=== PATIENT | female | born 1995 | race Caucasian/White ===

== ENCOUNTER 2022-05-24 10:15 | Emergency (ER) | payer OTHER, SELFPAY ==
[2022-05-24 10:43] VITALS: BP 107/70; PULSE 82; RESP 18; TEMP 36.7; O2SAT 97; BMI 25.7
--- NOTE | 2022-05-24 10:57 | ED.GENADULT ---
HPI - General Adult General Chief complaint: Headache Stated complaint: migraines x3 days Time Seen by Provider: 05/24/22 10:56 Source: patient Mode of arrival: ambulatory Limitations: no limitations History of Present Illness HPI narrative: Patient is a 26 year old assigned female at with a history of migraines presenting to the emergency department today with a persistent migraine. Patient states that her migraines usually resolve after 1 day and this one has been hanging around for 3 days. Patient states that she has tried Excedrin with no success. Patient denies any dizziness, lightheadedness, abdominal pain, vomiting, fever, chills, blurry vision, double vision, loss of vision, chest pain, difficulty breathing, shortness of breath, back pain, night sweats, pain with urination, increased urinary frequency, increased urinary urgency, blood in her urine or stool, syncope or a near syncopal episode, recent trauma or falls, bowel incontinence, bladder incontinence, bowel retention, bladder retention, or any other complaints at this time. Onset (ago): day(s) (3) Location: head Severity: mild Severity scale (1-10): 2 Relieving factors: none Exacerbating factors: none Treatments prior to arrival: none Related Data Allergies Allergy/AdvReac Type Severity Reaction Status Date / Time No Known Allergies Allergy Verified 05/24/22 10:45 [No Known Allergies*] Review of Systems Constitutional: Constitutional: Reports no additional constitutional complaints, Denies chills, Denies fever(s), Reports headache(s) and Denies night sweats Eyes: Eyes: Reports no additional eye complaints, Denies blurry vision, Denies change in vision, Denies diplopia, Denies eye discharge, Denies loss of vision and Denies eye pain ENT: Denies dizziness and Reports headache(s) Cardiovascular: Cardiovascular: Reports no additional cardiovascular complaints, Denies chest pain, Denies lightheadedness, Denies Loss of Consciousness and Denies dyspnea Respiratory: Respiratory: Reports no additional respiratory complaints and Denies dyspnea Gastrointestinal: Gastrointestinal: Reports no additional gastrointestinal complaints, Denies abdominal pain, Denies melena, Denies hematochezia, Denies change in bowel habits, Denies change in stool character and Reports nausea Genitourinary: Genitourinary: Denies hematuria, Denies urinary frequency, Denies dysuria, Denies urinary incontinence, Denies urinary hesitancy and Denies urinary urgency Musculoskeletal: Musculoskeletal: Reports no additional musculoskeletal complaints, Denies numbness and Denies tingling Neurologic: Denies dizziness, Reports headache(s), Denies loss of vision, Denies numbness and Denies tingling Psychiatric: Psychiatric: Reports no additional psychiatric complaints Endocrine: Endocrine: Reports no additional endocrine complaints Hematologic/Lymphatic: Hematologic/Lymphatic: Reports no additional hematologic/lymphatic complaints Allergic/Immunologic: Allergic/Immunologic: Reports no additional allergic/immunologic complaints [facility] Past Medical History Attestation statement: The following information was validated with the patient. Source: old records reviewed and nursing notes reviewed Medical History Gastritis Migraine Social History Social History Alcohol intake: never Smoked in Last 30 Days: No Use of substances other than those prescribed or required for medical reasons: Yes Substance Use Type: Marijuana Advance Directives: No Advance Directives Information Provided: No Patient : No Physical Exam ED Vital Signs: Vital Signs - 24 hr 05/24/22 10:43 05/24/22 12:00 Temperature 98.0 F Pulse Rate 82 67 Respiratory Rate 18 18 Blood Pressure 107/70 95/63 Pulse Oximetry 97 98 Oxygen Delivery Method Room Air BMI result Body Mass Index 25.7 Const General: cooperative, no acute distress, alert and awake Nutritional Appearance: well nourished Orientation/consciousness: patient oriented x3 Limitations: no limitations HENMT Head: Yes normal to inspection and Yes atraumatic Ears: hearing grossly normal bilaterally and external ears normal General nose exam: Normal external nose present, no nasal discharge noted and no epistaxis Face and sinus: Yes normal facial exam, No abrasion and No laceration Mouth: Normal oral and palatal mucosa present, no drooling and no muffled voice Eyes General: appearance normal, both eyes and all related structures Periorbital: periorbital findings normal Eyelids: Yes eyelids normal Conjunctivae: conjunctivae normal Pupils: Equal, round and reactive pupils present EOM: EOMs intact bilaterally Neck Neck: Yes normal visual inspection, Yes full ROM and Yes no lymphadenopathy Chest Chest palpation & inspection: normal inspection of the chest Resp Effort & Inspection: normal respiratory effort and able to speak in complete sentences Auscultation: clear to auscultation bilaterally Cardio Rate: regular rate Rhythm: regular rhythm GI Inspection: Yes normal to inspection Palpation (GI): Soft to palpation, not firm, nontender and no guarding Neuro General: patient oriented x3 and moves all extremities Cranial nerves: Yes Equal, round and reactive pupils present Cognition (Neuro): normal cognition Motor exam (neuro): 5/5 motor strength present throughout Sensory Exam: Normal double simultaneous stimulation for sensation Coordination: [id number] test normal Extrem General: Yes normal to inspection, Yes full ROM and Yes capillary refill normal Psych Appearance: grossly normal Mental Status: mental status grossly normal Affect: normal affect Attitude: cooperative Thought process: Normal thought process present Thought content: Normal thought content present Insight: Good insight present (Psych) Medications Administered Discontinued Medications Generic Name Dose Route Start Last Admin Trade Name Freq PRN Reason Stop Dose Admin Acetaminophen/Butalbital/Caffeine 1 tab 05/24/22 10:59 05/24/22 11:23 Butalb/Acetamin/Caff 50/325/40 Tablet PO 05/24/22 11:00 1 tab ONCE ONE Administration Ketorolac Tromethamine 15 mg 05/24/22 10:59 05/24/22 11:23 Ketorolac Tromethamine 15 Mg/Ml Vial IM 05/24/22 11:00 15 mg ONCE ONE Administration Ondansetron HCl 4 mg 05/24/22 10:59 05/24/22 11:23 Ondansetron Odt 4 Mg Tab.Michaeldis TRANSLINGU 05/24/22 11:00 4 mg ONCE ONE Administration Medical Decision Making Medical Decision Making MDM Narrative: Patient is a 26 year old assigned female at with a history of migraines presenting to the emergency department today with a 3 day long migraine. Patient's physical exam was unremarkable. I explained my physical exam findings to the patient. I answered all questions asked by the patient. Patient received IM Toradol, PO Fiorcet, and ODT Zofran which she stated helped her symptoms significantly. I stressed the importance of the patient taking her medication as prescribed. I stressed the importance of the patient following up with her primary care provider and a neurologist. I stressed the importance of the patient returning to the emergency department immediately if her symptoms were to worsen or if she were to develop any dizziness, shortness of breath, difficulty breathing, chest pain, blurry vision, loss of vision, nausea, vomiting, abdominal pain, fever, chills, back pain, or any other complaints. Patient verbalized agreement and understanding with this treatment plan and discharge. Differential Diagnosis Differential Diagnoses: The differential diagnosis associated with the presentation includes migraine Discharge Plan Discharge Clinical Impression: Migraine Patient Disposition: Home, Self-Care Instructions: Migraine Headache (ED) Additional Instructions: Follow up with your primary care provider. Return to the emergency department immediately if your symptoms worsen or if you develop any dizziness, shortness of breath, difficulty breathing, chest pain, blurry vision, loss of vision, nausea, vomiting, abdominal pain, fever, chills, back pain, or any other complaints. [place] [facility] [place] (Call to establish and follow up with a primary care provider. If you already have a primary care provider, please follow up with them.) [facility] [place]Provider Group] (Call to establish and follow up with a primary care provider. If you already have a primary care provider, please follow up with them.) [facility] [place]Provider Group] (Call to establish and follow up with a primary care provider. If you already have a primary care provider, please follow up with them.) [facility] [place] [facility] [place] (Call to establish and follow up with a neurologist for chronic migraine management.) Stand Alone Forms: Work/School Release Interventions: ED Discharge Assessment Last Done: 05/24/22 12:25 Discharge Date/Time: 05/24/22 12:25 Print Language: Senegalese
[2022-05-24] MEDS: Ondansetron ODT 4 MG TAB.RAPDIS TRANSLINGU (11:23)
[2022-05-24] MEDS: Butalb/Acetamin/Caff 50/325/40 TABLET 1 TAB PO (11:23)
[2022-05-24] MEDS: Ketorolac Tromethamine 15 MG/ML VIAL IM (11:23)
--- NOTE | 2022-05-24 11:29 | PC.NURSE ---
patient a&ox3, c/o mild nausea and 3 day migraine- otc medications which she usually takes arent working, pt states frustration over migraines and providers not taking her seriously to figure out what the causes are, this nurse suggested documenting a food journal to see if any foods are triggers for them. pt states she is photophobic also has floaters in her vision, neuros otherwise intact, pt medicated per order, call das within reach, will continue to monitor
[2022-05-24 12:00] VITALS: BP 95/63; PULSE 67; RESP 18; O2SAT 98
== END 2022-05-24 12:25 | disposition home or self-care (01) ==
PROVIDERS: Emergency Provider Emergency Medicine
DX: G43.909 Migraine, unspecified, not intractable, without status migrainosus (principal)
CPT/HCPCS: 96372; 99284; J1885

== ENCOUNTER 2022-07-21 15:27 | Emergency (ER) | payer OTHER, SELFPAY ==
--- NOTE | ~2022-07-21 | XR_ITS ---
EXAMINATION: XR CHEST CLINICAL INFORMATION: Chest pain. COMPARISON: None available. TECHNIQUE: 2 views of the chest were obtained. FINDINGS: No significant abnormality is noted involving the heart, lungs, mediastinum, bony thorax or soft tissues. XR/XR chest 2V IMPRESSION: No acute cardiopulmonary process.
--- NOTE | 2022-07-21 15:32 | ED_ITS ---
HPI - Chest Pain General Chief Complaint: Chest Pain Stated Complaint: chest pain numbness in arm Related Data Allergies Allergy/AdvReac Type Severity Reaction Status Date / Time No Known Allergies Allergy Verified 05/24/22 10:45 [No Known Allergies*] [facility] Past Medical History Medical History Gastritis Migraine Social History Social History Alcohol intake: never Substance Use Type: Marijuana Physical Exam Vital Signs: Vital Signs: Last Vital Signs Temp 98.7 F 07/21/22 15:34 Pulse 74 07/21/22 15:34 Resp 18 07/21/22 15:34 BP 111/70 07/21/22 15:34 Pulse Ox 96 07/21/22 15:34 O2 Del Method Room Air 07/21/22 15:34 BMI result Body Mass Index 24.6 Course Course Course Narrative: RME - 26 y/o female with history of gastritis presents to the ER for evaluation of intermittent non- radiating chest pains for the last 2-3 days along with new onset left arm numbness that started today. Pain in the chest currently 5/10 in the middle of the chest. VSS in triage. Plan: EKG, labs, CXR Reevaluation(s) Reevaluation #1: patient eloped prior to full evaluation and treatment. Medical Decision Making Lab Data 07/21/22 15:51 07/21/22 15:50 Labs: Lab Results 07/21/22 07/21/22 07/21/22 Range/Units 15:50 15:50 15:51 WBC 8.7 (4.8-10.8) X10*3/uL RBC 4.49 (4.20-5.50) X10*6/uL Hgb 13.1 (12.0-16.0) g/dl Hct 37.4 (37.0-47.0) % MCV 83.3 (80.0-98.0) fL MCH 29.2 (27.0-33.0) pg MCHC 35.0 (31.0-35.0) g/dl RDW 11.9 (11.0-16.0) % Plt Count 209 (160-400) X10*3/uL MPV 10.5 (9.4-12.3) fL Immature Gran % (Auto) 0.2 (0.0-0.4) % Neut % (Auto) 74.5 H (45-73) % Lymph % (Auto) 18.3 L (20-40) % Nuckolls % (Auto) 5.8 (2-11) % Eos % (Auto) 0.9 (0-4) % Baso % (Auto) 0.3 (0-2) % Lymph # (Auto) 1.6 (1.2-4.9) X10*3/uL Nuckolls # (Auto) 0.5 (0.1-1.2) X10*3/uL Eos # (Auto) 0.1 (0.0-0.4) X10*3/uL Baso # (Auto) 0.0 (0.0-0.2) X10*3/uL Abs Immat Gran (auto) 0.02 (0.00-0.03) X10*3/uL Absolute Neuts (auto) 6.5 (2.0-8.3) x10*3/uL Absolute Nucleated RBC 0.000 (0.0-0.012) X10*3/uL Nucleated RBC % (auto) 0.0 (0.0-0.2) /100WBC Sodium 144 (135-145) mmol/L Potassium 3.7 (3.3-5.1) mmol/L Chloride 111 H (96-108) mmol/L Carbon Dioxide 24 (22-29) mmol/L Anion Gap 13 (12-20) BUN 9 (9-16) mg/dL Creatinine 0.73 (0.5-1.4) mg/dL Estim Creat Clear Calc 106.0 Estimated GFR > 60 Random Glucose 95 (60-115) mg/dL Calcium 9.7 (8.4-10.2) mg/dL Magnesium 2.1 (1.6-2.6) mg/dL Total Bilirubin 0.6 (0.0-1.0) mg/dL Direct Bilirubin 0.1 (0.0-0.5) mg/dL AST 14 (5-31) U/L ALT 11 (0-31) U/L Alkaline Phosphatase 60 (39-117) U/L Troponin I High Sens < 2.7 (<3.5-17.0) ng/L Total Protein 7.5 (6.5-8.0) g/dL Albumin 4.6 (3.5-5.0) g/dL Discharge Plan Discharge Clinical Impression: Chest pain Patient Disposition: Elopement
--- NOTE | 2022-07-21 15:32 | ECG_ITS ---
Test Reason : chest pain Blood Pressure : / mmHG Vent. Rate : 073 BPM Atrial Rate : 073 BPM P-R Int : 134 ms QRS Dur : 088 ms QT Int : 394 ms P-R-T Axes : 058 061 026 degrees QTc Int : 434 ms Normal sinus rhythm with sinus arrhythmia Normal ECG No previous ECGs available Referred By: Florence Hanson Electronically Signed By:Aravind Collazo
[2022-07-21 15:34] VITALS: BP 111/70; PULSE 74; RESP 18; TEMP 37.1; O2SAT 96; BMI 24.6
[2022-07-21 15:55] LABS: MANUAL DIFF FLAG NO
[2022-07-21 15:57] LABS: Basophils Percent Auto 0.3 % (0-2); Eosinophils Absolute Auto 0.1 X10*3/uL (0.0-0.4); Eosinophils Percent Auto 0.9 % (0-4); Hematocrit 37.4 % (37.0-47.0); Hemoglobin 13.1 g/dl (12.0-16.0); Imm Gran Abs Auto 0.02 X10*3/uL (0.00-0.03); Imm Gran Pct Auto 0.2 % (0.0-0.4); Lymphocytes Absolute Auto 1.6 X10*3/uL (1.2-4.9); Lymphocytes Percent Auto 18.3 % (20-40); Mean Corpuscular Hemoglobin 29.2 pg (27.0-33.0); Mean Corpuscular Volume 83.3 fL (80.0-98.0); Mean Platelet Volume 10.5 fL (9.4-12.3); Monocytes Absolute Auto 0.5 X10*3/uL (0.1-1.2); Monocytes Percent Auto 5.8 % (2-11); Neutrophils Absolute Auto 6.5 x10*3/uL (2.0-8.3); Neutrophils Percent Auto 74.5 % (45-73); Platelet Count 209 X10*3/uL (160-400); Red Blood Count 4.49 X10*6/uL (4.20-5.50); Red Cell Distribution Width 11.9 % (11.0-16.0); White Blood Count 8.7 X10*3/uL (4.8-10.8)
[2022-07-21 16:14] LABS: Alanine Aminotransferase 11 U/L (0-31); Albumin Level 4.6 g/dL (3.5-5.0); Alkaline Phosphatase 60 U/L (39-117); Anion Gap 13 (12-20); Aspartate Amino Transferase 14 U/L (5-31); Bilirubin Direct 0.1 mg/dL (0.0-0.5); Bilirubin Total 0.6 mg/dL (0.0-1.0); Blood Urea Nitrogen 9 mg/dL (9-16); Calcium 9.7 mg/dL (8.4-10.2); Carbon Dioxide 24 mmol/L (22-29); Chloride 111 mmol/L (96-108); Estimated Glomerular Filt Rate > 60; Glucose Random 95 mg/dL (60-115); Magnesium 2.1 mg/dL (1.6-2.6); Potassium 3.7 mmol/L (3.3-5.1); Sodium 144 mmol/L (135-145); Total Protein 7.5 g/dL (6.5-8.0)
[2022-07-21 16:24] LABS: Troponin-I High Sensitivity < 2.7 ng/L (<3.5-17.0)
== END 2022-07-21 22:10 | disposition left against medical advice (07) ==
LOC: HO.ED 20:57
PROVIDERS: Physician Assistant; Emergency Provider Emergency Medicine
DX: R07.9 Chest pain, unspecified (principal); F12.90 Cannabis use, unspecified, uncomplicated
CPT/HCPCS: 36415; 71046; 80048; 80076; 83735; 84484; 85025; 93005; 99283

== ENCOUNTER 2022-11-19 02:59 | Emergency (ER) | payer OTHER, SELFPAY ==
[2022-11-19 03:59] VITALS: BP 108/56; PULSE 96; RESP 16; TEMP 36.6; O2SAT 98; BMI 25.0
--- NOTE | 2022-11-19 07:05 | ED.GENADULT ---
HPI - General Adult General Chief complaint: Wound/Laceration Stated complaint: head lac, hit head on mirror Time Seen by Provider: 11/19/22 06:44 Source: patient Mode of arrival: ambulatory Limitations: no limitations History of Present Illness HPI narrative: 27 y o female presenting for evaluation of laceration to forehead that occurred earlier this morning. Patient reports that she woke up in the middle of the night to use the bathroom, on her way into the bathroom she reports it was dark and she tripped over something, falling forward into a mirror. Reports +HS with immediate bleeding to a laceration on the forehead. Negative LOC, not on thinners. Pt reports a significant amount of blood loss at home, but now states bleeding is controlled. Endorsing 7/10 pain. Endorsing +headache (diffuse w/o vision changes) and also reporting some intermittent dizziness. Denies visual or hearing changes, numbness or tingling. Also denying chest pain, shortness of breath, abdominal pain, nausea, vomiting, or diarrhea. Last tetanus unknown, patient states likely more than 10 years ago. Related Data Allergies Allergy/AdvReac Type Severity Reaction Status Date / Time No Known Allergies Allergy Verified 05/24/22 10:45 [No Known Allergies*] Review of Systems Review of Systems: Constitutional : No Fever, No Chills, Cardiovascular : No Chest Pain, No SOB Respiratory : No Dyspnea Gastrointestinal : No abdominal pain Musculoskeletal : No Joint Swelling Skin : No rash, positive skin laceration Neuro : No Weakness, No Numbness, + Headache Psych : No SI/HI Yes all other systems are reviewed and are negative PMFSH Past Medical History Attestation statement: The following information was validated with the patient. Source: old records reviewed and nursing notes reviewed Medical History Gastritis Migraine Social History Social History Alcohol intake: never Substance Use Type: Marijuana Advance Directives: No Advance Directives Information Provided: No Patient : No Physical Exam ED Vital Signs: Vital Signs - 24 hr 11/19/22 03:59 11/19/22 07:23 Temperature 97.9 F Pulse Rate 96 91 Respiratory Rate 16 12 Blood Pressure 108/56 L 110/71 Pulse Oximetry 98 98 Oxygen Delivery Method Room Air Room Air BMI result Body Mass Index 25.0 VSS Appearance: Alert.? Oriented X3.? No acute distress.? Head: Normocephalic, atraumatic, no step-offs or deformities. Eyes: Pupils equal, round and reactive to light.?EOMs in tact without pain. Visual salazar in tact without deficit. Neck: Normal inspection.? Neck supple.? CVS: Normal heart rate and rhythm.? Pulses normal.? Respiratory: No respiratory distress.? Breath sounds normal.? Abdomen: Soft and nontender.? Skin: Skin warm and dry.? Normal skin color.? Normal skin turgor.?There is a 5cm linear /superficial laceration to the forehead, midline in position with bleeding currently controlled. No purulent drainage, no surrounding erythema or warmth. Extremities: No lower extremity edema.? No calf ttp. 5/5 strength to bilateral upper and lower extremities Neuro: Oriented X 3.? No motor deficit.? No sensory deficit. CN 2-12 intact. No dysdiadochokinesia, normal finger to nose, heel to perez. Negative Romberg. Ambulatory with a steady gait. GCS-15 NIHSS-0 NIH Stroke Scale Time: 07:11 Level of Consciousness: Alert Level of Consciousness Questions: Answers both questions correctly Level of Consciousness Commands: Performs both tasks correctly Best Gaze: Normal Visual: No visual loss Facial Palsy: Normal Motor Arm (Right): No drift Motor Arm (Left): No drift Motor Leg (Right): No drift Motor Leg (Left): No drift Limb Ataxia: Absent Sensory: Normal Best Language: No aphasia Dysarthia: Normal Extinction and Inattention: No abnormality Score: 0 Course Reevaluation(s) Reevaluation #1: Wound irrigated and then closed with dermabond, skin edges approximated and closed with good effect. . No surrounding erythema, warmth, ecchymosis of the area. Patient tolerated the procedure well, Tylenol ordered for headache. CT pending. Prior to placing Dermabond I did have a long conversation with patient of Dermabond versus stitches, pros versus cons, patient decided Dermabond over stitches and understands that there could be better cosmetic effect with sutures. However she would like Dermabond. Time: 07:41 Reevaluation #2: Head CT read is unremarkable. No acute hemorrhage, mass effect or shift. Patient left prior to receiving discharge paperwork and CT results. Time: 09:19 Medications Administered Discontinued Medications Generic Name Dose Route Start Last Admin Trade Name Aicha PRN Reason Stop Dose Admin Acetaminophen 650 mg 11/19/22 07:10 11/19/22 08:05 Acetaminophen 325 Mg Tablet PO 11/19/22 07:11 650 mg ONCE ONE Administration Diphtheria/Tetanus/Acell Pertussis 0.5 ml 11/19/22 07:10 11/19/22 08:03 Diphth,Pertus(Acell),Tet Adult 0.5 Ml Syringe IM 11/19/22 07:11 0.5 ml .ONCE ONE Administration Medical Decision Making Medical Decision Making [facility] Narrative: 07 27 y o female presenting with laceration to forehead s/p mechanical fall into a mirror this morning with +HS, -LOC PE with 5cm laceration to the forehead, midline in position with bleeding currently controlled. No purulent drainage, no surrounding erythema or warmth. No focal neuro deficits. No dysdiadochokinesia, normal to finger to nose, heel to perez. No pain on EOMs. Pupils HUMBERTO b/l. Strength 5/5 throughout. NIHSS 0 GCS 15 Likely simple laceration. No purulent drainage, no surrounding erythema. Bleeding controlled. No concern for cellulitis, necrotizing infection. Likely concussion without loss of consciousness vs tension headache vs migraine. I am not concerned for epidural hematoma vs subdural hemorrhage vs ICH or other brain bleed, but will r/o with imaging. No signs of skull fx. No signs of traumatic injury to neck, chest, abdomen or pelvis. Plan -- imaging, Tdap, lac closure Differential Diagnosis Differential Diagnoses: The differential diagnosis associated with the presentation includes Likely simple laceration. No purulent drainage, no surrounding erythema. Bleeding controlled. No concern for cellulitis, necrotizing infection. Likely concussion without loss of consciousness vs tension headache vs migraine. I am not concerned for epidural hematoma vs subdural hemorrhage vs ICH or other brain bleed, but will r/o with imaging. No signs of skull fx. No signs of traumatic injury to neck, chest, abdomen or pelvis. Admission/Observation Consideration of admission/observation: Escalation of care including admission/observation considered Unlikely Independent Interpretation I performed an independent interpretation of an: CT Scan Radiology Impression Discussion of test interpretation with radiology: I have reviewed the radiologist's reading. External Record Review External record reviewed: Inpatient record, Outpatient record, Prior outpatient labs and Prior outpatient radiology Critical Care Time Critical Care Time Critical Care Time: No Discharge Plan Discharge Clinical Impression: Laceration, Concussion Patient Disposition: Home, Self-Care Instructions: Concussion (ED), Post Concussion Syndrome (ED), Head Laceration (ED) Additional Instructions: Take your medications as prescribed. If you were prescribed antibiotics today, it is important that you take your medication to their entirety, do not skip any doses, do not finish them early. Follow-up with your primary care provider this week. Return to the emergency department with new or worsening symptoms worsening headache, vision changes, dizziness, nausea, vomiting, chest pain, shortness of breath. In case of emergency call 911 You can take ibuprofen every 6 hours, Tylenol every 4 as needed for pain or discomfort. Referrals: Physician,Miguel Angel J [Primary Care Provider] - 3 days Stand Alone Forms: Work/School Release
[2022-11-19 07:23] VITALS: BP 110/71; PULSE 91; RESP 12; O2SAT 98
== END 2022-11-19 09:49 | disposition home or self-care (01) ==
PROVIDERS: Emergency Provider Emergency Medicine
DX: S01.91XA Laceration without foreign body of unspecified part of head, initial encounter (principal); S06.0X0A Concussion without loss of consciousness, initial encounter; S00.01XA Abrasion of scalp, initial encounter; R40.2410 Glasgow coma scale score 13-15, unspecified time; R51.9 Headache, unspecified; Y29.XXXA Contact with blunt object, undetermined intent, initial encounter; Y93.9 Activity, unspecified; Y92.9 Unspecified place or not applicable; Y99.9 Unspecified external cause status; Z23 Encounter for immunization
CPT/HCPCS: 12002; 70450; 90471; 90715; 99284

== ENCOUNTER 2024-02-29 22:29 | Emergency (ER) | payer OTHER, SELFPAY ==
[2024-02-29 22:34] VITALS: BP 111/65; PULSE 95; RESP 16; TEMP 36.8; O2SAT 97; BMI 25.8
--- NOTE | 2024-03-01 00:12 | ED_ITS ---
HPI - General Adult General Chief complaint: Eye Problems Stated complaint: facial lump Time Seen by Provider: 03/01/24 00:11 Source: patient Mode of arrival: ambulatory Limitations: no limitations History of Present Illness ED Provider: HPI narrative: Patient with acne comes here with redness and swelling under the left eye for last 3 days no fever no chills Related Data Previous Rx's ?Medication ?Instructions ?Recorded cephalexin 500 mg capsule 500 mg PO QID 10 days #40 caps 03/01/24 doxycycline hyclate 100 mg tablet 100 mg PO BID #20 tabs 03/01/24 Allergies Allergy/AdvReac Type Severity Reaction Status Date / Time No Known Allergies Allergy Verified 02/29/24 22:36 [No Known Allergies*] Review of Systems 2 Review of Systems: Yes all other systems are reviewed and are negative [facility] Past Medical History Medical History Gastritis Migraine Social History Social History Alcohol intake: never Substance Use Type: Marijuana Advance Directives: No Advance Directives Information Provided: No Do you have a plan to hurt others: No Plan Physical Exam ED Vital Signs: Vital Signs - 24 hr 02/29/24 22:34 Temperature 98.2 F Pulse Rate 95 Respiratory Rate 16 Blood Pressure 111/65 Pulse Oximetry 97 Oxygen Delivery Method Room Air BMI result Body Mass Index 25.8 Appearance: Alert. Oriented X3. No acute distress. ENT: Pharynx normal. Oral Mucosa moist small abscess over left cheek Neck: Normal inspection. Neck supple. CVS: Normal heart rate and rhythm. Pulses normal. Respiratory: No respiratory distress. Equal air entry bilateral, no wheezing/rales/rhonchi Skin: Skin warm and dry. Cellulitic indurated abscess left cheek HENMT Face images: 2 1. Medications Administered Discontinued Medications Generic Name Dose Route Start Last Admin Trade Name Freq PRN Reason Stop Dose Admin Cephalexin HCl 500 mg 03/01/24 00:29 03/01/24 00:49 Cephalexin 500 Mg Capsule PO 03/01/24 00:30 500 mg ONCE ONE Administration Doxycycline Monohydrate 100 mg 03/01/24 00:29 03/01/24 00:49 Doxycycline Monohydrate 100 Mg Capsule PO 03/01/24 00:30 100 mg ONCE ONE Administration Procedures Abscess I/D Site: face Side (if applicable): left Technique: needle aspiration Amount of fluid expressed (mL): 0.5 Sent for culture/gram staining?: No Irrigation: No Packing used?: none Medical Decision Making Medical Decision Making [facility] Narrative: Small abscess under the left eye on the cheek needle aspiration was done pus removed will prescribe doxycycline and cephalexin Discharge Plan Discharge Clinical Impression: Abscess of face Patient Disposition: Home, Self-Care Instructions: Abscess (ED) Additional Instructions: Local care as advised Warm packs Take antibiotic as prescribed Report to the ER/PCP if swelling gets worse Prescriptions: New cephalexin 500 mg capsule 500 mg PO QID 10 Days Qty: 40 0RF doxycycline hyclate 100 mg tablet 100 mg PO BID Qty: 20 0RF Print Language: Irish
[2024-03-01] MEDS: Doxycycline Monohydrate 100 MG CAPSULE PO (00:49)
[2024-03-01] MEDS: cephALEXin 500 MG CAPSULE PO (00:49)
[2024-03-01 00:50] VITALS: BP 111/65; PULSE 95; RESP 16; TEMP 36.8; O2SAT 97
== END 2024-03-01 01:45 | disposition home or self-care (01) ==
PROVIDERS: Emergency Provider Internal Medicine
DX: L02.01 Cutaneous abscess of face (principal); H57.12 Ocular pain, left eye
CPT/HCPCS: 10060; 99282; 99284